=== PATIENT | male | born 1990 | race Caucasian/White ===

== ENCOUNTER 2016-05-18 19:23 | Emergency (ER) | payer SELFPAY ==
[~2016-05-18] VITALS: Ht 167.6 cm; Wt 93.0 kg
[~2016-05-18 19:23] MED LIST: BACITUD TOP
[2016-05-18 19:25] VITALS: Ht 167.6 cm; Wt 93.0 kg
[2016-05-18 20:26] LABS: BASOPHIL # 0.1 10^3/ul (0.0-0.1); EOSINOPHILS # 0.1 10^3/ul (0.0-0.5); EOSINOPHILS % 0.7 % (0.0-7.0); HEMATOCRIT 43.2 % (42.0-52.0); HEMOGLOBIN 14.7 g/dl (14.0-18.0); LYMPHOCYTES # 1.1 10^3/ul (0.8-2.9); LYMPHOCYTES % 10.2 % (15.0-51.0); MEAN CORPUSCULAR HEMOGLOBIN 31.1 pg (29.0-33.0); MEAN CORPUSCULAR VOLUME 91.3 fl (82.0-101.0); MONOCYTE # 0.7 10^3/ul (0.3-0.9); MONOCYTES % 6.2 % (0.0-11.0); NEUTROPHIL # 8.9 10^3/ul (1.6-7.5); NEUTROPHILS % 81.9 % (39.0-77.0); PLATELET COUNT 292 10^3/UL (140-440); RED BLOOD COUNT 4.73 10^6/ul (4.70-6.10); RED CELL DISTRIBUTION WIDTH 12.5 % (11.5-14.5); UNCORRECTED WBC 10.9 10^3/ul (4.8-10.8); WHITE BLOOD COUNT 10.9 10^3/ul (4.8-10.8)
[2016-05-18 20:27] LABS: CONDITION 1
--- NOTE | 2016-05-18 20:37 | RADRPT ---
PROCEDURE: XR Chest. CLINICAL INDICATION: Cough and chest pain. TECHNIQUE: Single frontal view of the chest was obtained COMPARISON: 08/28/2014. FINDINGS: The heart and mediastinum are within normal limits. The lungs are clear. Hypoinflated lungs, body habitus and portable technique accentuates pulmonary v ascular markings. There is no pleural effusion or pneumothorax. IMPRESSION: No acute disease. RPTAT: [facility] Physician Silas Date Time Electronically viewed and signed by Theron Hoyos Physician on 05/18/2016 20:37 RS/
[2016-05-18 20:39] LABS: ADD UMIC NO; URINE BILIRUBIN (Dip) NEGATIVE (NEGATIVE); URINE BLOOD (Dip) NEGATIVE (NEGATIVE); URINE COLOR LT. YELLOW (YELLOW); URINE GLUCOSE (Dip) NEGATIVE (NEGATIVE); URINE KETONES (Dip) NEGATIVE (NEGATIVE); URINE LEUKOCYTE ESTERASE (Dip) NEGATIVE (NEGATIVE); URINE NITRITE (Dip) NEGATIVE (NEGATIVE); URINE TOTAL PROTEIN (Dip) NEGATIVE (NEGATIVE); URINE UROBILINOGEN (Dip) 0.2 E.U./dL (0.1-1.0)
[2016-05-18 20:43] LABS: ALBUMIN 4.6 g/dl (3.3-4.9)
[2016-05-18 20:44] LABS: POTASSIUM 4.1 mmol/L (3.5-5.1)
[2016-05-18 20:46] LABS: ALBUMIN/GLOBULIN RATIO 1.21; BILIRUBIN,INDIRECT 0.2 mg/dl (0-1.1); BILIRUBIN,TOTAL 0.2 mg/dl (0.2-1.3); CREATININE 0.87 mg/dl (0.61-1.24); TOTAL PROTEIN 8.4 g/dl (6.1-8.1)
[2016-05-18 20:47] LABS: CALCIUM 10.1 mg/dl (8.4-10.2)
[2016-05-18] MEDS ORDERED: AZITHROMYCIN 250 MG TAB PO ONE (21:30)
[2016-05-18] MEDS ORDERED: LIDOCAINE 1% (MDV) 20 ML INJ IM ONE (21:30)
[2016-05-18] MEDS ORDERED: CEFTRIAXONE 250 MG INJ IM ONE (21:30)
[2016-05-18] MEDS ORDERED: CEFTRIAXONE 1 GM INJ IM ONE (22:00)
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
[2016-05-18] MEDS ORDERED: METHYLPREDNISOLONE 125 MG INJ IV ONE (22:30)
[2016-05-18] MEDS ORDERED: DIPHENHYDRAMINE 50 MG INJ IV ONE (22:30)
[2016-05-19 00:02] VITALS: BP 150/85; PULSE 77; RESP 20; TEMP 98.6
[2016-05-20] MEDS ORDERED: ALBU8.5H3 INH (23:16)
[2016-05-20] MEDS ORDERED: GUAI473L22 PO (23:16)
[2016-05-20] MEDS ORDERED: IBUP-1542 PO (23:16)
[2016-05-20] MEDS ORDERED: CETI10CA PO (23:16)
== END 2016-05-19 00:27 | disposition home or self-care (01) ==
LOC: FTE 19:23
DX: R05 Cough (principal); R42 Dizziness and giddiness; R21 Rash and other nonspecific skin eruption; M79.1 Myalgia
CPT/HCPCS: 71010; 80053; 81003; 83690; 85025; 87591; 96372; 96374; 96375; 99284; J0696; J1200; J2930

== ENCOUNTER 2016-05-20 21:25 | Emergency (ER) | payer SELFPAY ==
[~2016-05-20] VITALS: Ht 167.6 cm; Wt 95.5 kg
[2016-05-20 21:29] VITALS: Ht 167.6 cm; Wt 95.5 kg
[2016-05-20] MEDS ORDERED: CETI10CA PO (23:16)
[2016-05-20] MEDS ORDERED: ALBU8.5H3 INH (23:16)
[2016-05-20] MEDS ORDERED: IBUP-1542 PO (23:16)
[2016-05-20] MEDS ORDERED: GUAI473L22 PO (23:16)
--- NOTE | 2016-05-20 23:19 | ERD ---
ER Documentation Chief Complaint Date/Time DATE: 05/20/16 TIME: 23:17 Chief Complaint Bodyaches joint pains cough shortness of breath episodes for 2 days. HPI 26-year-old male presents here in emergency department for complaints of cough runny nose nasal congestion bodyaches shortness breath joint pains for 2 days. Patient was seen yesterday for the same problem, patient did not take any medications to help with symptoms. Patient's complaining of bodyaches, joint pain, 4/10 scale, vomiting or other symptoms. Patient denies any fever or chills. Patient denies any palpitations or irregular heartbeat. Patient denies any sick contacts. ROS All systems reviewed and are negative except as per history of present illness. Medications Home Meds Active Scripts Albuterol Sulfate* (Proair HFA*) 8.5 Gm Hfa.aer.ad, 2 PUFF INH Q4H Y for WHEEZING AND SOB, #1 INHALER Prov:NISH ZARCO NP 05/20/16 Cetirizine Hcl* (Zyrtec*) 10 Mg Capsule, 10 MG PO DAILY, #30 TAB.CHEW Prov:NISH ZARCO NP 05/20/16 Guaifenesin-Codeine Phosphate* (Guaifenesin* AC Cough Syrup) 473 Ml Liquid, 10 ML PO Q4H Y for COUGH, #120 ML Prov:NISH ZARCO NP 05/20/16 Ibuprofen* (Motrin*) 600 Mg Tab, 600 MG PO Q6H Y for PAIN AND OR ELEVATED TEMP, #30 TAB Prov:NISH ZARCO NP 05/20/16 Bacitracin* (Bacitracin Oint (UD)*) 1 Applic Oint, 1 APPLIC TOP ONCE, #10 PKT APPLY TO Prov:RILEY TAYLOR PA-C 01/18/15 Allergies Allergies: Coded Allergies: No Known Allergy (Unverified , 08/28/14) PMhx/Soc History of Surgery: Yes (Bowel Surg) Anesthesia Reaction: No Hx Neurological Disorder: No Hx Respiratory Disorders: No Hx Cardiac Disorders: No Hx Miscellaneous Medical Probl: No Hx Alcohol Use: No Hx Substance Use: No Hx Tobacco Use: No Smoking Status: Never smoker FmHx Family History: No coronary disease, No diabetes, No other Physical Exam Vitals Vital Signs Date Time Temp Pulse Resp B/P Pulse Ox O2 Delivery O2 Flow Rate FiO2 05/20/16 21:29 97.7 80 20 162/94 98 Physical Exam GENERAL: The patient is well developed and appropriate for usual state of health, in no apparent distress. HEENT: Atraumatic. Ears: Normal tympanic membrane, no erythema or bulging. No ear canal swelling. No ear discharge. Nose: Erythematous nasal turbinates with clear nasal discharge. Throat: oropharynx erythematous with postnasal drip. No tonsillar swelling or tonsillar exudates. No lymphadenopathy. CHEST: Clear to auscultation bilaterally. There are no rales, wheezes or rhonchi. HEART: Regular rate and rhythm. No murmurs, clicks, rubs or gallops. No S3 or S4. ABDOMEN: Soft, nontender and nondistended. Good bowel sounds. No rebound or guarding. No gross peritonitis. No gross organomegaly or masses. No Aviles sign or McBurney point tenderness. BACK: No midline or flank tenderness. EXTREMITIES: Equal pulses bilaterally. There is no peripheral clubbing, cyanosis or edema. No focal swelling or erythema. Full range of motion. Grossly neurovascularly intact. NEURO: Alert and oriented. Cranial nerves 2-12 intact. Motor strength in all 4 extremities with 5/5 strength. Sensation grossly intact. Normal speech and gait. Negative Kernig's sign. Negative Brudzinski's sign. SKIN: There is no apparent rash or petechia. The skin is warm and dry. HEMATOLOGIC AND LYMPHATIC: There is no evidence of excessive bruising or lymphedema. No gross cervical, axillary, or inguinal lymphadenopathy. Results 24 hrs PROCEDURE: XR Chest. CLINICAL INDICATION: Cough and chest pain. TECHNIQUE: Single frontal view of the chest was obtained COMPARISON: 08/28/2014. FINDINGS: The heart and mediastinum are within normal limits. The lungs are clear. Hypoinflated lungs, body habitus and portable technique accentuates pulmonary vascular markings. There is no pleural effusion or pneumothorax. IMPRESSION: No acute disease. RPTAT: [facility] Physician Silas Date Time Electronically viewed and signed by Physician Silas on 05/18/2016 20:37 Procedures/MDM Medical Decision Making: Patient symptoms are most likely consistent with viral syndrome. Patient's bodyaches joint pains myalgias most likely is from the viral syndrome. Patient had a oral examination yesterday, had laboratory testing done, had a chest x-ray done, all were benign. There is low suspicion for Pneumonia at this time since patients lungs sounds are clear, patient O2 saturation is normal and patient doesnt show any respiratory distress. Patients chest xray done yesterday doesnt show infiltrates or any other cardiopulmonary emergencies at this time. There is low suspicion for other cardiopulmonary emergencies at this time such as CHF, Pulmonary Embolism, Pneumothorax, Aortic Aneurysm or any other cardiopulmonary emergencies at this time. There is low suspicion for sepsis. Patient appears well and is hemodynamically stable. Fever is controlled with medicines. Low suspicion for meningitis, negative Kernig's or Brudzinski's sign, fever controlled at this time, patient appears well and is hemodynamically stable. Patient did not have any recent travel. Disposition: Home. Condition: Stable Prescriptions: Guaifenesin with codeine, ibuprofen, Zyrtec, albuterol Instructions: Patient is advised to take medications as prescribed. Patient is advised to rest. Patient advised to increase fluid intake, do humidifier at home and if possible, do salt water gargles. Patient is advised that if symptoms are worse, shortness of breath, uncontrolled fever, stridor, vomiting, worst signs and symptoms to return to emergency department immediately. Otherwise, patient is advised to follow up with primary doctor in 5-7 days. Departure Diagnosis: Primary Impression: Viral syndrome Condition: Stable Patient Instructions: Viral Syndrome (Adult) NISH ZARCO NP May 20, 2016 23:19
== END 2016-05-20 23:37 | disposition home or self-care (01) ==
LOC: FTE 21:25
DX: B34.9 Viral infection, unspecified (principal)
CPT/HCPCS: 99283

== ENCOUNTER 2016-09-03 19:39 | Emergency (ER) | payer SELFPAY ==
[~2016-09-03 19:39] MED LIST changes: +ALBU8.5H3 INH; +CETI10CA PO; +GUAI473L22 PO; +IBUP-1542 PO
== END 2016-09-03 21:54 | disposition left against medical advice (07) ==
LOC: E/R 19:39
DX: Z53.21 Procedure and treatment not carried out due to patient leaving prior to being seen by health care provider (principal)